=== PATIENT | male | born 2000 | race Caucasian/White ===

== ENCOUNTER 2021-10-25 22:33 | Emergency (ER) | payer BC ==
[~2021-10-25] VITALS: Ht 167.6 cm; Wt 64.0 kg
[2021-10-26 00:27] LABS: BASOPHILS % 0.7 % (0.0-2.0); EOSINOPHILS % 0.9 % (0.0-5.0); HEMATOCRIT. 41.6 % (42.0-52.0); HEMOGLOBIN. 14.3 g/dL (14.0-18.0); LYMPHOCYTES % 34.5 % (20.0-50.0); MEAN CORPUSCULAR HEMOGLOBIN 30.9 pg (28.0-32.0); MEAN CORPUSCULAR VOLUME 89.7 fL (80.0-94.0); MEAN PLATELET VOLUME 8.7 fl (7.4-10.4); MONOCYTES % 8.1 % (2.0-8.0); NEUTROPHILS % 55.8 % (40.0-76.0); PLATELET 283 x1000/uL (130-400); RED BLOOD CELL COUNT 4.63 mill/uL (4.7-6.1); RED CELL DISTRIBUTION WIDTH 12.8 % (11.6-14.6)
[2021-10-26 00:31] LABS: CHLORIDE 107 mEq/L (98-107)
[2021-10-26 00:35] LABS: ETHANOL BLOOD < 10 mg/dL
[2021-10-26 13:43] VITALS: BP 107/68
[2021-10-26] MEDS ORDERED: LURA20TA MT (13:46)
== END 2021-10-26 14:14 | disposition home or self-care (01) ==
LOC: ER 22:44
DX: R45.851 Suicidal ideations (principal); R44.0 Auditory hallucinations; Z90.49 Acquired absence of other specified parts of digestive tract; Z20.822 Contact with and (suspected) exposure to COVID-19
CPT/HCPCS: 36415; 80053; 80307; 80320; 80329; 85025; 87635; 93005; 99285; G0480